=== PATIENT | female | born 1955 | race Caucasian/White ===

== ENCOUNTER 2019-07-09 07:52 | Emergency (ER) | payer MEDICAID ==
[~2019-07-09] VITALS: Ht 165.1 cm; Wt 90.7 kg
[2019-07-09 08:06] VITALS: BP_SYST 143
--- NOTE | 2019-07-09 08:12 | NUR ---
ambulated to bed 5
--- NOTE | 2019-07-09 08:14 | NUR ---
Patient arrived in the ED c/o abscess on lower nostril that started 3 days ago - Patient is taking Tylenol; no relief per patient. Denied any fevers or chills. Patient is alert and oriented x4, respirations even and unlabored, speaking in full sentences, ambulating with a steady gait. VSS, pain level 8/10. Denied any chest pain or SOB. Informed of wait time. Instructed to notify ED staff for any changes in condition or worsening of symptoms. Patient verbalized understanding.
--- NOTE | 2019-07-09 08:16 | NUR ---
ER Dr. Carrington at bedside examining patient.
[2019-07-09] MEDS ORDERED: MORPHINE 4 MG/ML INJ. SYRINGE IM ONE (08:30)
--- NOTE | 2019-07-09 08:30 | NUR ---
Administered Morphine Sulfate 4mg IM as ordered by Dr. Carrington. Patient tolerated the medication well.
--- NOTE | 2019-07-09 08:35 | NUR ---
Sister at bedside.
--- NOTE | 2019-07-09 08:37 | NUR ---
Patient given written and verbal discharge instructions and verbalizes understanding. ER MD discussed with patient the results and treatment provided. Patient in stable condition. ID arm band removed. Rx of Lovely and Bactrim given. Patient educated on pain management and to follow up with PMD. Pain Scale 0/10. Opportunity for questions provided and answered. Medication side effect fact sheet provided.
[2019-07-09 08:41] VITALS: BP_SYST 143
== END 2019-07-09 08:41 | disposition home or self-care (01) ==
LOC: SED 07:52
DX: L02.02 Furuncle of face (principal); J44.9 Chronic obstructive pulmonary disease, unspecified; E11.9 Type 2 diabetes mellitus without complications; I10 Essential (primary) hypertension; Z88.0 Allergy status to penicillin; Z88.6 Allergy status to analgesic agent; Z90.49 Acquired absence of other specified parts of digestive tract
CPT/HCPCS: 96372; 99283; J2270; J7030

== ENCOUNTER 2019-07-17 13:09 | Emergency (ER) | payer MEDICAID ==
[~2019-07-17] VITALS: Ht 165.1 cm; Wt 90.7 kg
[2019-07-17 13:10] VITALS: BP_SYST 119
--- NOTE | 2019-07-17 13:10 | NUR ---
Patient triaged and placed in waiting room. VSS and patient appears in no acute distress at this time. Accompanied by SELF, awaiting available bed, and MD notified of need for MSE.
--- NOTE | 2019-07-17 14:10 | NUR ---
Veronica harrison in [facility] - 07/17/19 at 1606 by [email or web address] Patient to ER bed 5 to gown for evaluation. Side rails up.
--- NOTE | 2019-07-17 14:30 | NUR ---
PT BEING EVALUATED BY FLORENCIO YU IN TRIAGE ROOM.
[2019-07-17] MEDS ORDERED: LIDOCAINE 2%, 20 ML MDV INJ ONE (14:45)
[2019-07-17] MEDS ORDERED: HYDROcodone/ACETAMIN 5-325 MG TAB (NORCO/ VICODIN) PO ONE (14:45)
[2019-07-17] MEDS ORDERED: MUPIROCIN 2% TOPICAL OINTMENT 22 GM TP ONE (15:30)
--- NOTE | 2019-07-17 15:45 | NUR ---
Patient to ER bed 5 to gown for evaluation. Side rails up.
[2019-07-17] MEDS ORDERED: BACITRACIN 1 GM OINT TP ONE (15:50)
--- NOTE | 2019-07-17 15:50 | NUR ---
Patient presented to ER C/O painful facial bump. Patient A&Ox4, afebrile, ambulatory to ER, facial skin bump: red, swollen, no bleeding noted, pain 10/10, denies diarrhea, emesis/nausea x1 today. Patient states bump has been present since 07/08/2019 and pt staes she was treated with antibiotics.
--- NOTE | 2019-07-17 16:00 | NUR ---
ER [employer] B[employer] TEACHER at bedside examining patient.
--- NOTE | 2019-07-17 16:09 | NUR ---
I&D Procedure done by Diony Yi AUT[employer] DAMAGE APPRAISER to using sterile technique. Lidocaine 1% used. scant amt of bleeding noted. Wound care discussed w/ patient. Pt tolerated procedure well.
[2019-07-17 16:37] VITALS: BP_SYST 121
--- NOTE | 2019-07-17 16:40 | NUR ---
Patient given written and verbal discharge instructions and verbalizes understanding. ER MD discussed with patient the results and treatment provided. Patient in stable condition. ID arm band removed. Rx of Doxycycline & Mupercin given. Patient educated on pain management and to follow up with PMD. Pain Scale 3/10 tolerable for patient. Opportunity for questions provided and answered. Medication side effect fact sheet provided.
== END 2019-07-17 16:40 | disposition home or self-care (01) ==
LOC: SED 13:09
DX: L02.01 Cutaneous abscess of face (principal)
CPT/HCPCS: 10060; 99283; J2001

== ENCOUNTER 2020-01-05 19:48 | Emergency (ER) | payer MEDICAID ==
[~2020-01-05] VITALS: Ht 165.1 cm; Wt 100.7 kg
[2020-01-05 20:00] VITALS: BP_SYST 113
--- NOTE | 2020-01-05 20:00 | NUR ---
Patient to ER bed 3 to gown for evaluation. Side rails up. Report given to JONATHAN GEE.
--- NOTE | 2020-01-05 20:01 | NUR ---
RECEIVED AND IN ROOM, STEADY GAIT
--- NOTE | 2020-01-05 20:12 | NUR ---
DR WHITT IN TO ASSESS
[2020-01-05] MEDS ORDERED: MORPHINE 2 MG/ML INJ. SYRINGE IM ONE (20:15)
--- NOTE | 2020-01-05 20:16 | NUR ---
X-RAY IN PROGRESS.
--- NOTE | 2020-01-05 20:19 | NUR ---
ALERT, CALM, RESP UNLABORED, SKIN WARM AND DRY. ABLE TO BEAR WEIGHT, DENIES LOC/HEAD INJURY. COMMUNICATES CLEARLY IN FULL COMPLETE SENTENCES.
--- NOTE | 2020-01-05 21:20 | NUR ---
Patient given written and verbal discharge instructions and verbalizes understanding. ER MD discussed with patient the results and treatment provided. Patient in stable condition. ID arm band removed. Rx given. Patient educated on pain management and to follow up with PMD. Pain Scale 2/10 Opportunity for questions provided and answered. Medication side effect fact sheet provided.
[2020-01-05 21:23] VITALS: BP_SYST 109
== END 2020-01-05 21:20 | disposition home or self-care (01) ==
LOC: SED 19:48
DX: S93.492A Sprain of other ligament of left ankle, initial encounter (principal); S83.92XA Sprain of unspecified site of left knee, initial encounter; J44.9 Chronic obstructive pulmonary disease, unspecified; I10 Essential (primary) hypertension; E11.9 Type 2 diabetes mellitus without complications; Z87.891 Personal history of nicotine dependence; Z90.49 Acquired absence of other specified parts of digestive tract; Z88.0 Allergy status to penicillin; Z88.6 Allergy status to analgesic agent; W01.0XXA Fall on same level from slipping, tripping and stumbling without subsequent striking against object, initial encounter; Y93.01 Activity, walking, marching and hiking; Y92.89 Other specified places as the place of occurrence of the external cause; Y99.8 Other external cause status
CPT/HCPCS: 73564; 73610; 96372; 99284; J2270

== ENCOUNTER 2020-06-26 11:00 | Emergency (ER) | payer MEDICAID, SELFPAY ==
[2020-06-26] MEDS ORDERED: ALBUTEROL SULFATE 0.083% 2.5 MG/3 ML VIAL.NEB INH ONE (12:59)
--- NOTE | 2020-06-26 16:07 | NUR ---
SEE DOWNTIME PAPERWORK
[2020-06-27 14:30] LABS: CALCIUM 9.1 mg/dL (8.4-11.0); POTASSIUM 4.4 mmol/L (3.5-5.1)
[2020-06-27 14:31] LABS: BILIRUBIN,DIRECT 0.1 mg/dL (0.0-0.3); CREATININE 1.43 mg/dL (0.55-1.30); TOTAL BILIRUBIN 0.8 mg/dL (0.0-1.0)
[2020-06-27 14:32] LABS: ALBUMIN 3.9 g/dL (3.4-4.8)
[2020-06-27 14:38] LABS: HEMATOCRIT 41.7 % (36-48); HEMOGLOBIN 14.3 g/dL (12.0-16.0); MEAN CORPUSCULAR HEMOGLOBIN 31 pg (27-31); MEAN CORPUSCULAR HGB CONC 34 % (32-36); MEAN CORPUSCULAR VOLUME 91 fL (79.0-98.0); PLATELET COUNT (AUTO) 251 K/uL (130-430); RED BLOOD CELL COUNT(AUTO) 4.59 MIL/uL (4.2-6.2); RED CELL DISTRIBUTION WIDTH 12.5 % (9.0-15.0); WHITE BLOOD COUNT (AUTO) 7.4 K/uL (4.8-10.8)
[2020-06-27 14:39] LABS: BASOPHILS # (AUTO) 0.1 K/uL (0.0-0.2); BASOPHILS % (AUTO) 0.7 % (0.0-2.0); EOSINOPHILS # (AUTO) 0.1 K/uL (0.0-0.4); EOSINOPHILS % (AUTO) 0.9 % (0.0-4.0); LYMPHOCYTES # (AUTO) 2.1 K/uL (1.0-5.5); LYMPHOCYTES % (AUTO) 28.5 % (20.5-51.5); MONOCYTES # (AUTO) 0.6 K/uL (0.0-1.0); MONOCYTES % (AUTO) 7.9 % (1.7-9.3); NEUTROPHILS # (AUTO) 4.6 K/uL (1.8-7.7)
== END 2020-06-26 14:14 | disposition home or self-care (01) ==
LOC: SED 11:00
DX: J20.9 Acute bronchitis, unspecified (principal)
CPT/HCPCS: 36415; 36600; 71045; 80053; 82140; 82248; 82803; 83880; 84484; 85025; 85379; 85610; 87040; 87070; 87086; 87205; 93005; 94640; 99285; J7613; 99284

== ENCOUNTER 2021-03-16 08:00 | Inpatient (IN) | payer MEDICAID, SELFPAY ==
[~2021-03-16] VITALS: Ht 165.1 cm; Wt 90.7 kg
[2021-03-16 08:26] VITALS: BP_SYST 111
[2021-03-16] MEDS ORDERED: DEXAMETHASONE SOD PHOSPHATE 10 MG/ML VIAL IVP ONE (09:00)
[2021-03-16] MEDS ORDERED: ALBUTEROL MDI INHALATION 8 GM INH INH ONE (09:00)
[2021-03-16] MEDS ORDERED: ACETAMINOPHEN 500 MG TABLET ONE (09:02)
--- NOTE | 2021-03-16 09:19 | NUR ---
RECEIEVED PT, AAOX3, REPORTS FEELING SOB AND FEVERS FOR LAST COUPLE OF DAYS. PT FEBRILE AT 104.3, REPORTS MILD SOB AND FEELING GENERALIZED PAIN TO BODY AND HEADCAHE 10/10 AT THIS TIME. ABD LARGE, SOFT, NT TO PALPATION, DENIES ANY N/V/D. STATES SHE LIVES AT HOME WITH HER AND SON. PT ALSO ADMITTED TO NOT GETTING VACCINATED. WAITING FOR ER MD QURESHI.
--- NOTE | 2021-03-16 09:27 | NUR ---
MEDICATED WITH TYLENOL ORDERED.
[2021-03-16 09:32] LABS: BASOPHILS # (AUTO) 0.1 K/uL (0.0-0.2); BASOPHILS % (AUTO) 0.4 % (0.0-2.0); EOSINOPHILS % (AUTO) 0.1 % (0.0-4.0); HEMATOCRIT 32.7 % (36-48); HEMOGLOBIN 11.1 g/dL (12.0-16.0); LYMPHOCYTES # (AUTO) 1.2 K/uL (1.0-5.5); LYMPHOCYTES % (AUTO) 7.6 % (20.5-51.5); MEAN CORPUSCULAR HEMOGLOBIN 31 pg (27-31); MEAN CORPUSCULAR HGB CONC 34 % (32-36); MEAN CORPUSCULAR VOLUME 92 fL (79.0-98.0); MONOCYTES % (AUTO) 12.9 % (1.7-9.3); NEUTROPHILS # (AUTO) 12.2 K/uL (1.8-7.7); PLATELET COUNT (AUTO) 220 K/uL (130-430); RED BLOOD CELL COUNT(AUTO) 3.55 MIL/uL (4.2-6.2); RED CELL DISTRIBUTION WIDTH 12.9 % (9.0-15.0); WHITE BLOOD COUNT (AUTO) 15.4 K/uL (4.8-10.8)
[2021-03-16] MEDS ORDERED: ACETAMINOPHEN 500 MG TABLET PO ONE (09:45)
--- NOTE | 2021-03-16 09:47 | NUR ---
SL INSERTED TO RT FA, GOOD BLOOD RETURN,FLUSHED WITH 5CC NS. RAPID COVID TEST DONE.
[2021-03-16 09:52] LABS: CALCIUM 7.8 mg/dL (8.4-11.0); CREATININE 1.55 mg/dL (0.55-1.30); POTASSIUM 3.5 mmol/L (3.5-5.1)
[2021-03-16 09:53] LABS: PROTHROMBIN TIME 10.2 SECS (9.5-12.5)
[2021-03-16 09:56] LABS: ALBUMIN 2.8 g/dL (3.4-4.8); TOTAL BILIRUBIN 0.8 mg/dL (0.0-1.0)
[2021-03-16 10:12] LABS: C-REACTIVE PROTEIN QUANT 33.2 mg/dL (0-0.5)
--- NOTE | 2021-03-16 11:51 | NUR ---
PT DIAPHORETIC, PALE, TEMP 98.9 ORAL, REPORTS FEELING BETTER. IV LEVAQUIN INFUSING WELL TO LEFT HAND IV. BP 120/71, HR-95, 94% ON 02-2L VIA NC.
--- NOTE | 2021-03-16 12:13 | NUR ---
CONSENT RECEIVED FOR CT CHEST, QUESTIONNAIRE COMPLETED. Addendum: 03/16/21 at 1238 by [email or web address] NOTE WRITTEN BY LAURA CASTILLO
[2021-03-16] MEDS ORDERED: IOHEXOL 350 mgI/mL, 150 ML INFUS..BTL IV ONE (12:34)
--- NOTE | 2021-03-16 12:38 | NUR ---
CT SCAN STAFF INFORMED PT IS READY FOR CT SCAN WITH CONTRAST
--- NOTE | 2021-03-16 13:07 | NUR ---
PT BACK FROM CT SCAN, NEW GOWN GIVEN. VSS.
--- NOTE | 2021-03-16 13:40 | NUR ---
PT TRANSFERED TO TELE 116A WITH EMT, BEDSIDE REPORT LAURIE, PT WALKED TO ROOM WITH MINIMAL ASSISTANCE. VSS. ALL BELONGINGS WITH PT.
[2021-03-16 13:45] VITALS: BP_SYST 98
--- NOTE | 2021-03-16 13:45 | NUR ---
ADMISSION NOTE Received patient from ER ambulatory, received report from JONATHAN Dyson. Patient admitted as a Person Under Investigation for COVID-19. Explained need for isolation, verbalized understanding. Patient oriented to hospital routine, call light, toileting and safety-patient, verbalized understanding.
[2021-03-16] MEDS ORDERED: FUROSEMIDE 40 MG/4 ML VIAL IVP SCH (16:30)
--- NOTE | 2021-03-16 17:03 | NUR ---
ROUNDS RESTING. NO SIGN OF DISTRESS. HER SON CAME IN AND PICKED UP HER WALLET, MEDICATIONS AND BLACK SHIRT. NO OTHER COMPLAINS AT THIS TIME. WILL MONITOR.
--- NOTE | 2021-03-16 17:12 | NUR ---
CONSULT PULMONOLOGY PNEUMONIA- DR EDGE [phone] S/W ANTHONY DIAZ
--- NOTE | 2021-03-16 17:14 | NUR ---
CONSULT ID PNEUMONIA DR [facility] [phone] S/W MERYNA EXCHANGE
--- NOTE | 2021-03-16 18:51 | NUR ---
CLOSING NOTES RESTING. NO SIGN OF DISTRESS. STILL ON OXYGEN AT 2 LITERS. ALL NEEDS MET. SAFETY CHECKS DONE. WILL ENDORSE TO NIGHT NURSE.
--- NOTE | 2021-03-16 19:30 | NUR ---
OPENING NOTE RECEIVED REPORT FROM DAY RN. PT LAYING IN BED WITH RESPIRATIONS EVEN AND UNLABORED ON 3L O2 VIA NC. PT VISIBLY UPSET AND STATES, "WHY DO I HAVE TO BE IN THIS ROOM". EDUCATED PT ON RESPIRATORY SYMPTOMS AND TESTS DONE TO RULE OUT COVID INFECTION. PT VERBALIZED UNDERSTANDING. PT STATES SHE FEELS "ALONE" BECAUSE NO ONE HAD ANSWERED HER CALL LIGHT. PT EDUCATED ON PROPER BUTTON TO USE WHEN NEEDING ASSISTANCE. PT VERBALIZED UNDERSTANDING. LINES AND GOWN CHANGED. PT IV PULLED OUT. PT IS UNAWARE OF HOW IT BECAME DISLODGED. IV TIP INTACT. NO BLEEDING AT INSERTION SITE. PT STATES SHE FORGOT TO TELL PREVIOUS NURSE ABOUT HER HOME MEDICATIONS TAKEN. PT CANNOT REMEMBER MEDICATIONS AT THIS TIME. WILL CALL SISTER TO VERIFY MEDICATIONS. BED IN LOWEST AND LOCKED POSITION. PT AMBULATORY WITH STEADY GAIT. CALL LIGHT WITHIN REACH. SAFETY PRECAUTIONS IN PLACE. WILL CONTINUE TO MONITOR.
[2021-03-16 20:00] VITALS: BP_SYST 97
--- NOTE | 2021-03-16 22:25 | NUR ---
CALLED PATIENT SISTER (ANTONIO) PER PT, ANTONIO PHONE NUMBER: [phone] CALLED ANTONIO TO VERIFY PT HOME MEDICATIONS. PER PT, SHE TAKES A "WATER PILL", A BLOOD PRESSURE PILL (MAYBE HYDRALAZINE), THYROID MEDICATION (LEVOTHYROXINE), AND A PSYCHIATRIC MEDICATION THAT MAY BEGIN WITH THE LETTERS "LAMO...." SISTER DID NOT KNOW WHAT MEDICATIONS PT IS CURRENTLY TAKING AND ASKS TO CALL IN THE AM WHEN PT SON IS HOME. WILL ENDORSE TO DAY RN.
[2021-03-17 00:37] VITALS: BP_SYST 103
[2021-03-17] MEDS: LEVOFLOXACIN IN DEXTROSE 5 % 100 ML IV SCH ×2 (02:30→04:38)
[2021-03-17] MEDS: 0.45% NACL 1,000 ML IV SCH ×3 (02:30→11:39)
--- NOTE | 2021-03-17 02:45 | NUR ---
ROUNDS PT C/O HEADACHE AND FEELING ANXIOUS. WILL PAGE PRIMARY MD FOR MEDICATION ORDERS.
--- NOTE | 2021-03-17 02:50 | NUR ---
PAGED DR. HUMPHRIES SPOKE WITH EXCHANGE REGARDING PT NEEDING MEDICATION ORDERS. CALL BACK NUMBER GIVEN.
--- NOTE | 2021-03-17 03:45 | NUR ---
ATTEMPTED IV INSERTION UNABLE TO GET PATENT IV VIA LEFT ARM. WILL ASK ANOTHER EXPERIENCED LICENSED PERSONAL TO ASSIST WITH INSERTION
--- NOTE | 2021-03-17 04:09 | NUR ---
ATTEMPTED IV INSERTION SECOND LICENSED PERSONAL ATTEMPTED IV INSERTION. UNABLE TO GET PATENT IV. PT EDUCATED ON UNSUCCESSFUL ATTEMPTS. AWAITING MD TO RETURN CALL FOR MEDICATION ORDERS.
[2021-03-17] MEDS ORDERED: LEVOFLOXACIN IN DEXTROSE 5 % 100 ML IV ONE (04:19)
[2021-03-17 06:50] LABS: BASOPHILS % (AUTO) 0.2 % (0.0-2.0); HEMATOCRIT 36.3 % (36-48); HEMOGLOBIN 12.2 g/dL (12.0-16.0); LYMPHOCYTES # (AUTO) 0.9 K/uL (1.0-5.5); LYMPHOCYTES % (AUTO) 6.3 % (20.5-51.5); MEAN CORPUSCULAR HEMOGLOBIN 31 pg (27-31); MEAN CORPUSCULAR HGB CONC 34 % (32-36); MEAN CORPUSCULAR VOLUME 92 fL (79.0-98.0); MONOCYTES # (AUTO) 1.1 K/uL (0.0-1.0); MONOCYTES % (AUTO) 7.6 % (1.7-9.3); NEUTROPHILS # (AUTO) 12.6 K/uL (1.8-7.7); NEUTROPHILS % (AUTO) 85.9 % (40.0-70.0); PLATELET COUNT (AUTO) 275 K/uL (130-430); RED BLOOD CELL COUNT(AUTO) 3.96 MIL/uL (4.2-6.2); WHITE BLOOD COUNT (AUTO) 14.7 K/uL (4.8-10.8)
[2021-03-17 07:23] LABS: CALCIUM 8.8 mg/dL (8.4-11.0); CREATININE 1.68 mg/dL (0.55-1.30); POTASSIUM 3.7 mmol/L (3.5-5.1)
[2021-03-17 07:28] LABS: ALBUMIN 2.9 g/dL (3.4-4.8); TOTAL BILIRUBIN 0.5 mg/dL (0.0-1.0)
--- NOTE | 2021-03-17 07:34 | NUR ---
called son to try and get a list of the medications the patient takes at home but did not answer, left message to call back.
[2021-03-17 08:00] VITALS: BP_SYST 104
--- NOTE | 2021-03-17 08:00 | NUR ---
PATIENT IN BED, NO S/S OF DISTRESS, REPORT FORM UNEMPLOYMENT BENEFITS CLAIMS TAKER THAT PATIENT IV WAS DISLODGED AND WITH HELP OF OTHER NURSE WAS NOT ABLE TO PLACE AN IV, IN ADDITION WAS TOLD PATIENT MED RECON WAS NOT COMPLETE BECAUSE PATIENT DOES NOT KNOW ALL THE MEDICATIONS SHE IS ON, WILL CONTACT SON TO GET MEDICATION LIST, A/OX4, ON 3L NASAL CANULA WITH O2 SAT OF 98%, NO PAIN OR COMPLAINTS AT THIS TIME, BED IN LOWEST LOCKED POSITION, CALL LIGHT WITHIN REACH, ISOLATION FOR COVID RULE OUT, WILL CONTINUE TO MONITOR.
[2021-03-17 08:57] LABS: C-REACTIVE PROTEIN QUANT 32.9 mg/dL (0-0.5)
--- NOTE | 2021-03-17 08:57 | NUR ---
Nutrition Update Gibran Scale 16 noted. Pt admitted for PUI, Pneumonia Diet: Regular BMI: 36.6 kg/m2 RD to follow per nutrition care standards.
[2021-03-17] MEDS ORDERED: IPRATROPIUM/ALBUTEROL SULFATE 3 ML AMPUL.NEB (DUONEB) INH PRN (09:00)
--- NOTE | 2021-03-17 09:13 | NUR ---
PLACED 22G IV IN RIGHT HAND, IV FLUIDS RUNNING AT 100ML/HR, SPOKE TO SON ON THE PHONE, SAID HE WOULD BRING IN HER MEDICATIONS FROM HOME AROUND 1300.
[2021-03-17] MEDS ORDERED: D5W 1,000 ML IV PRN (11:00)
[2021-03-17] MEDS ORDERED: GLUCOSE (DEXTROSE) ORAL GEL -Adults PO PRN (11:00)
[2021-03-17] MEDS ORDERED: DEXTROSE 50% JECT 50 ML DISP.SYRIN IVP PRN (11:00)
[2021-03-17] MEDS: IPRATROPIUM/ALBUTEROL SULFATE 3 ML AMPUL.NEB (DUONEB) INH SCH ×4 (11:13→23:41)
[2021-03-17] MEDS: methylPREDNISolone SOD SUCC 40 MG/ML VIAL IVP SCH (11:19)
[2021-03-17] MEDS: INSULIN REGULAR, HUMAN 100 UNITS/ML, 10 ML VIAL (humuLIN R) SUBCUT PRN ×3 (11:36→21:12)
[2021-03-17 12:00] VITALS: BP_SYST 101
--- NOTE | 2021-03-17 12:25 | NUR ---
patient family member brought medications from home, will input all into the med recon now and take them to pharmacy.
[2021-03-17] MEDS ORDERED: LISI20TA30 PO (12:27)
[2021-03-17] MEDS ORDERED: TRAZ300T11 PO (12:36)
[2021-03-17] MEDS ORDERED: QUET300T2 PO (12:36)
[2021-03-17] MEDS ORDERED: NEU300 PO (12:36)
[2021-03-17] MEDS ORDERED: LAMO200T2 PO (12:36)
[2021-03-17] MEDS ORDERED: CALC-823 PO (12:36)
[2021-03-17] MEDS ORDERED: LEVO75TA7 PO (12:36)
[2021-03-17] MEDS ORDERED: HCT25 PO (12:36)
--- NOTE | 2021-03-17 13:00 | NUR ---
CALL DR HUMPHRIES TO SEE IF HE WANTS TO MAKE HOME MEDS CURRENT IN PATIENT MEDS. AWAITING CALL BACK
[2021-03-17 16:00] VITALS: BP_SYST 121
--- NOTE | 2021-03-17 16:03 | NUR ---
CALLED DR HUMPHRIES AGAIN TO TRY AND SEE IF WANTS TO MAKE HOME MEDS CURRENT INPATIENT MEDS, IN ADDITION PATIENT STATES SHE HAS A HEADACHE AND WANTS TYLENOL, BUT NEED TO FOR ORDER FROM DR HUMPHRIES
--- NOTE | 2021-03-17 16:15 | NUR ---
PAGED PAGED CESIA FARLEY AT [phone] SPOKE WITH DAR.
--- NOTE | 2021-03-17 17:12 | NUR ---
PATIENT PCR RESULTED NEGATIVE, MD HUMPHRIES MADE AWARE, ORDERED TO DISCOTINUE ISOLATION. PATIENT MOVED FROM 115A TO ROOM 117A, MOVED IN BED, ALL BELONGINGS WITH PATIENT, ON 3L OXYGEN NASAL CANULA, TOLERATED WELL, NO COMPLAINTS AT THIS TIME.
[2021-03-17] MEDS ORDERED: ACET325T PO (18:39)
[2021-03-17] MEDS ORDERED: ACETAMINOPHEN 325 MG TABLET PO PRN (18:45)
--- NOTE | 2021-03-17 19:35 | NUR ---
ROUNDS PATIENT RESTING COMFORTABLY IN BED, VITALS STABLE, DENIES PAIN AT THIS TIME. ASSESSMENT DONE AND DOCUMENTED. SEE FLOWSHEET. NEEDS ATTENDED TO. SAFETY MEASURES IN PLACED. CALL LIGHT PLACED WITHIN REACH.
[2021-03-17 20:00] VITALS: BP_SYST 115
[2021-03-17] MEDS: QUEtiapine FUMARATE 100 MG TABLET PO SCH ×2 (21:00→21:13)
[2021-03-17] MEDS: traZODone HCL 50 MG TABLET (DESYREL) PO SCH (21:13)
--- NOTE | 2021-03-17 21:20 | NUR ---
DR. ROTH PAGED AND CALLED DR. ROTH, PATIENT'S BLOOD SUGAR 418, 12 UNITS REGULAR INSULIN GIVEN. NO NEW ORDER GIVEN. WILL CONTINUE TO MONITOR.
[2021-03-18] VITALS: BP_SYST 118
--- NOTE | 2021-03-18 00:12 | NUR ---
PATIENT RESTING: Patient resting quietly. No acute distress noted. Vital signs within normal range.
[2021-03-18] MEDS: LEVOFLOXACIN IN DEXTROSE 5 % 100 ML IV SCH (01:53)
[2021-03-18] MEDS: IPRATROPIUM/ALBUTEROL SULFATE 3 ML AMPUL.NEB (DUONEB) INH SCH ×6 (04:01→23:00)
[2021-03-18] MEDS: INSULIN REGULAR, HUMAN 100 UNITS/ML, 10 ML VIAL (humuLIN R) SUBCUT PRN ×4 (05:35→21:32)
[2021-03-18] MEDS: 0.45% NACL 1,000 ML IV SCH ×3 (05:40→18:47)
[2021-03-18] MEDS: LEVOTHYROXINE SODIUM 0.075 MG TABLET PO SCH (06:35)
[2021-03-18 08:00] VITALS: BP_SYST 109
--- NOTE | 2021-03-18 08:00 | NUR ---
patient in bed, no s/s of distress, iv intact patent, a/ox4, bed in lowest locked position, call light within reach, safety measures in place, no pain at this time, will continue to monitor.
[2021-03-18] MEDS: GABAPENTIN 300 MG CAPSULE PO SCH ×2 (08:38→08:50)
[2021-03-18] MEDS: CALCIUM CARBONATE/VITAMIN D3 1 TAB TABLET PO SCH (08:38)
[2021-03-18] MEDS: methylPREDNISolone SOD SUCC 40 MG/ML VIAL IVP SCH (08:38)
[2021-03-18] MEDS: LamoTRIgine 100 MG TABLET PO SCH (08:38)
[2021-03-18] MEDS: lisinopriL 20 MG TABLET PO SCH (08:44)
--- NOTE | 2021-03-18 09:50 | NUR ---
provided patient her medications, tolerated well, stated she wants to be left alone to sleep
[2021-03-18 12:42] VITALS: BP_SYST 123
--- NOTE | 2021-03-18 13:00 | NUR ---
patient stated she was experiencing labored breathing, noted cough, received order from dr rodríguez for robitussin, notified respiratory therapy, RT at bedside providing breathing treatment, will give robitussin after.
[2021-03-18] MEDS: guaiFENesin 200 MG/10 ML UDC PO PRN ×2 (13:10→18:46)
--- NOTE | 2021-03-18 14:18 | NUR ---
reviewed patient rhythm with personnel monitor, patient PVCs have not occurred consecutively and have only occurred when the patient coughs.
--- NOTE | 2021-03-18 15:04 | NUR ---
Dietitian Recommendations * [facility] w/ Glucerna BID (ONS provides 440 kcal/day, 20 gm protein/day) * Encourage increase PO intakes LP, RD Please refer to Nutrition Assessment for details. Addendum: 03/18/21 at [address] Amended: Links added.
[2021-03-18 17:39] VITALS: BP_SYST 131
--- NOTE | 2021-03-18 18:54 | NUR ---
patient in bed, no s/s of distress, iv in r hand 22g intact patent, on 3L nasal canula, O2 sat >95%, a/ox4, bed in lowest locked position, call light within reach, provided Robitussin for cough, safety measures in place, no pain at this time, will endorse to vendor relationship manager
[2021-03-18 19:41] VITALS: BP_SYST 117
[2021-03-18] MEDS: QUEtiapine FUMARATE 100 MG TABLET PO SCH (21:00)
[2021-03-18] MEDS: traZODone HCL 50 MG TABLET (DESYREL) PO SCH (21:30)
[2021-03-19] VITALS: BP_SYST 121
[2021-03-19] MEDS: guaiFENesin 200 MG/10 ML UDC PO PRN ×4 (00:07→20:33)
[2021-03-19] MEDS: LEVOFLOXACIN IN DEXTROSE 5 % 100 ML IV SCH (03:00)
[2021-03-19] MEDS: 0.45% NACL 1,000 ML IV SCH ×2 (04:30→14:30)
[2021-03-19] MEDS: IPRATROPIUM/ALBUTEROL SULFATE 3 ML AMPUL.NEB (DUONEB) INH SCH ×5 (04:59→19:57)
[2021-03-19] MEDS: INSULIN REGULAR, HUMAN 100 UNITS/ML, 10 ML VIAL (humuLIN R) SUBCUT PRN ×4 (05:26→20:36)
[2021-03-19] MEDS: LEVOTHYROXINE SODIUM 0.075 MG TABLET PO SCH (06:21)
[2021-03-19 08:00] VITALS: BP_SYST 117
--- NOTE | 2021-03-19 08:00 | NUR ---
Opening note Patient is resting in bed A&O x4 no complaint of pain or discomfort, no signs or symptoms of respiratory distress, IV is infusing no signs or symptoms of infiltration. Educated patient on plan of care, patient verbalized understanding. Bed is in lowest position, call light within reach, fall and aspiration precautions are in place. Will continue to monitor.
[2021-03-19 08:42] LABS: BASOPHILS % (AUTO) 0.1 % (0.0-2.0); EOSINOPHILS % (AUTO) 0.4 % (0.0-4.0); HEMATOCRIT 32.6 % (36-48); HEMOGLOBIN 10.8 g/dL (12.0-16.0); LYMPHOCYTES # (AUTO) 2.3 K/uL (1.0-5.5); LYMPHOCYTES % (AUTO) 23.3 % (20.5-51.5); MEAN CORPUSCULAR HEMOGLOBIN 31 pg (27-31); MEAN CORPUSCULAR HGB CONC 33 % (32-36); MEAN CORPUSCULAR VOLUME 93 fL (79.0-98.0); MONOCYTES # (AUTO) 1.3 K/uL (0.0-1.0); MONOCYTES % (AUTO) 12.9 % (1.7-9.3); NEUTROPHILS # (AUTO) 6.2 K/uL (1.8-7.7); NEUTROPHILS % (AUTO) 63.3 % (40.0-70.0); PLATELET COUNT (AUTO) 300 K/uL (130-430); RED CELL DISTRIBUTION WIDTH 13.5 % (9.0-15.0); WHITE BLOOD COUNT (AUTO) 9.8 K/uL (4.8-10.8)
[2021-03-19 08:44] LABS: ALBUMIN 2.6 g/dL (3.4-4.8); CALCIUM 8.4 mg/dL (8.4-11.0); CREATININE 1.56 mg/dL (0.55-1.30); POTASSIUM 4.3 mmol/L (3.5-5.1); TOTAL BILIRUBIN 0.2 mg/dL (0.0-1.0)
[2021-03-19] MEDS: CALCIUM CARBONATE/VITAMIN D3 1 TAB TABLET PO SCH (08:56)
[2021-03-19] MEDS: methylPREDNISolone SOD SUCC 40 MG/ML VIAL IVP SCH (08:56)
[2021-03-19] MEDS: GABAPENTIN 300 MG CAPSULE PO SCH (08:57)
[2021-03-19] MEDS: LamoTRIgine 100 MG TABLET PO SCH (08:57)
[2021-03-19] MEDS: lisinopriL 20 MG TABLET PO SCH (09:01)
--- NOTE | 2021-03-19 11:30 | NUR ---
RN note Patient is resting, no compliant of pain or discomfort, able to ambulate to the restroom without assist, steady gait. Will continue to monitor.
--- NOTE | 2021-03-19 14:30 | NUR ---
IV RE-INSERTION: Complaining of pain to IV site. Restarted on Right forearm 22G. Successful after 2 attempts. Resumed current IVF of 0.45 Nacl and regulated @ 70 per hour. Will observe for any signs of infiltration.
[2021-03-19 16:00] VITALS: BP_SYST 120
--- NOTE | 2021-03-19 18:41 | NUR ---
Closing note Patient is resting in bed A&O x4 no complaint of pain or discomfort, no signs or symptoms of respiratory distress, IV is infusing no signs or symptoms of infiltration. All needs were met. Bed is in lowest position, call light within reach, fall and aspiration precautions are in place. Will endorse report to film processing shift supervisor.
--- NOTE | 2021-03-19 19:15 | NUR ---
OPENING NOTES: Received patient report from morning shift nurse. Patient in bed, AAOX4, breathing evenly and nonlabored on 2L of O2 via nc, HOB elevated, no s/s of distress. Patient has an IV on the right hand 22G, patent, benign, and flushing. Educated patient on plan of care and call light use. Patient verbalized understanding with return demonstration. Fall/safety precaution. Will continue to monitor. Addendum: 03/19/21 at 2219 by Rhona Trejo RN right forearm
--- NOTE | 2021-03-19 19:46 | NUR ---
Paged Dr. Plaza [phone] s/w Linda
[2021-03-19 20:00] VITALS: BP_SYST 122
[2021-03-19] MEDS: traZODone HCL 50 MG TABLET (DESYREL) PO SCH (20:33)
[2021-03-19] MEDS: QUEtiapine FUMARATE 100 MG TABLET PO SCH (20:34)
[2021-03-20] VITALS (7 sets, daily range): BP systolic 98–125
--- NOTE | 2021-03-20 | NUR ---
ROUNDS: Patient in bed, eyes closed, breathing evenly and nonlabored on 2L of O2 via nc, no s/s of distress. Will continue to monitor.
[2021-03-20] MEDS: 0.45% NACL 1,000 ML IV SCH ×3 (00:51→23:20)
[2021-03-20] MEDS: guaiFENesin 200 MG/10 ML UDC PO PRN ×4 (00:51→23:19)
[2021-03-20] MEDS: LEVOFLOXACIN IN DEXTROSE 5 % 100 ML IV SCH (02:21)
[2021-03-20] MEDS: IPRATROPIUM/ALBUTEROL SULFATE 3 ML AMPUL.NEB (DUONEB) INH SCH ×5 (04:34→19:30)
[2021-03-20] MEDS: LEVOTHYROXINE SODIUM 0.075 MG TABLET PO SCH (06:02)
--- NOTE | 2021-03-20 06:11 | NUR ---
CLOSING NOTES: Patient in bed, eyes closed, breathing evenly and nonlabored on 2L of O2 via nc, HOB elevated, no s/s of distress. Patient has an IV on the right forearm 22G, patent, benign, and flushing. Fall/safety precaution. All needs met at this time. Will continue to monitor and endorse care to morning shift nurse.
[2021-03-20] MEDS: lisinopriL 20 MG TABLET PO SCH (08:14)
[2021-03-20] MEDS: GABAPENTIN 300 MG CAPSULE PO SCH (08:14)
[2021-03-20] MEDS: LamoTRIgine 100 MG TABLET PO SCH (08:14)
[2021-03-20] MEDS: methylPREDNISolone SOD SUCC 40 MG/ML VIAL IVP SCH (08:14)
[2021-03-20] MEDS: CALCIUM CARBONATE/VITAMIN D3 1 TAB TABLET PO SCH (08:14)
[2021-03-20] MEDS: POLYETHYLENE GLYCOL 3350, 17 GM/ POWD.PACK PO SCH (08:15)
--- NOTE | 2021-03-20 09:00 | NUR ---
OPENING NOTE RECEIVED REPORT FROM JONATHAN TRAN. PATIENT IS SITTING IN BED EATING BREAKFAST. PATIENT HAS NO COMPLAINTS OF PAIN OR DISCOMFORT AT THIS TIME. SAFETY, ASPIRATION, RESPIRATORY AND FALL PRECAUTIONS IN PLACE. WILL CONTINUE TO MONITOR.
[2021-03-20] MEDS: INSULIN REGULAR, HUMAN 100 UNITS/ML, 10 ML VIAL (humuLIN R) SUBCUT PRN ×3 (12:05→23:24)
--- NOTE | 2021-03-20 13:00 | NUR ---
NURSING NOTE PATIENT FOUND SITTING IN BED WITH NO COMPLAINTS OF PAIN OR DISCOMFORT. VS OBTAINED AND FLUIDS CHANGED AND COUGH MEDICATION GIVEN. PATIENT ALSO WAS RECEIVING A BREATHING TREATMENT FROM RESPIRATORY.PATIENT KIAH VO WAS CONTACTED AND UPDATED OF PATIENTS STATUS.WILL CONTINUE TO MONITOR.
--- NOTE | 2021-03-20 18:02 | NUR ---
Closing note Patient found sitting in bed and expresses no complaints of pain or discomfort at this time. Meal jasmeet was delivered, safety, aspiration, respiratory and fall precautions are in place. IV paten and intact. All needs met throughout shift. will endorse to head animal keeper.
--- NOTE | 2021-03-20 19:32 | NUR ---
dr. lieberman call back- ask for medication for constipation. md order milk of magnesia 30ml po daily prn for constipation.
[2021-03-20] MEDS ORDERED: MILK OF MAGNESIA 30 ML UDC PO PRN (19:45)
[2021-03-20] MEDS: QUEtiapine FUMARATE 100 MG TABLET PO SCH (21:00)
[2021-03-20] MEDS: traZODone HCL 50 MG TABLET (DESYREL) PO SCH (23:19)
[2021-03-21] MEDS: LEVOFLOXACIN IN DEXTROSE 5 % 100 ML IV SCH (02:10)
[2021-03-21] MEDS: IPRATROPIUM/ALBUTEROL SULFATE 3 ML AMPUL.NEB (DUONEB) INH SCH ×7 (03:00→23:00)
[2021-03-21] MEDS ORDERED: VANCOMYCIN HCL 1,000 MG in NS 250 ML IV ONE (05:15)
[2021-03-21] MEDS ORDERED: VANCOMYCIN HCL 1000 MG/VIAL IV ONE (06:05)
[2021-03-21] MEDS: 0.45% NACL 1,000 ML IV SCH ×2 (06:19→18:55)
[2021-03-21] MEDS: LEVOTHYROXINE SODIUM 0.075 MG TABLET PO SCH (06:24)
[2021-03-21] MEDS: guaiFENesin 200 MG/10 ML UDC PO PRN ×3 (06:27→20:29)
[2021-03-21 07:52] VITALS: BP_SYST 110
--- NOTE | 2021-03-21 08:00 | NUR ---
Opening Note PATIENT IS SITTING IN BED EATING BREAKFAST. PATIENT HAS NO COMPLAINTS OF PAIN OR DISCOMFORT AT THIS TIME. SAFETY, ASPIRATION, RESPIRATORY AND FALL PRECAUTIONS IN PLACE. WILL CONTINUE TO MONITOR.
[2021-03-21] MEDS: GABAPENTIN 300 MG CAPSULE PO SCH (08:15)
[2021-03-21] MEDS: LamoTRIgine 100 MG TABLET PO SCH (08:15)
[2021-03-21] MEDS: POLYETHYLENE GLYCOL 3350, 17 GM/ POWD.PACK PO SCH (08:15)
[2021-03-21] MEDS: CALCIUM CARBONATE/VITAMIN D3 1 TAB TABLET PO SCH (08:16)
[2021-03-21] MEDS: lisinopriL 20 MG TABLET PO SCH (08:16)
[2021-03-21 08:19] LABS: BASOPHILS % (AUTO) 0.1 % (0.0-2.0); EOSINOPHILS # (AUTO) 0.4 K/uL (0.0-0.4); EOSINOPHILS % (AUTO) 2.5 % (0.0-4.0); HEMATOCRIT 32.2 % (36-48); HEMOGLOBIN 10.7 g/dL (12.0-16.0); LYMPHOCYTES # (AUTO) 3.6 K/uL (1.0-5.5); LYMPHOCYTES % (AUTO) 24.6 % (20.5-51.5); MEAN CORPUSCULAR HEMOGLOBIN 31 pg (27-31); MEAN CORPUSCULAR HGB CONC 33 % (32-36); MEAN CORPUSCULAR VOLUME 93 fL (79.0-98.0); MONOCYTES # (AUTO) 1.1 K/uL (0.0-1.0); MONOCYTES % (AUTO) 7.6 % (1.7-9.3); NEUTROPHILS # (AUTO) 9.6 K/uL (1.8-7.7); NEUTROPHILS % (AUTO) 65.2 % (40.0-70.0); PLATELET COUNT (AUTO) 345 K/uL (130-430); RED BLOOD CELL COUNT(AUTO) 3.47 MIL/uL (4.2-6.2); RED CELL DISTRIBUTION WIDTH 13.3 % (9.0-15.0); WHITE BLOOD COUNT (AUTO) 14.7 K/uL (4.8-10.8)
[2021-03-21 08:52] LABS: C-REACTIVE PROTEIN QUANT 2.5 mg/dL (0-0.5); CALCIUM 8.7 mg/dL (8.4-11.0); CREATININE 1.18 mg/dL (0.55-1.30); POTASSIUM 4.9 mmol/L (3.5-5.1)
[2021-03-21] MEDS: methylPREDNISolone SOD SUCC 40 MG/ML VIAL IVP SCH (09:58)
[2021-03-21] MEDS: INSULIN REGULAR, HUMAN 100 UNITS/ML, 10 ML VIAL (humuLIN R) SUBCUT PRN ×3 (11:16→20:33)
[2021-03-21 11:44] VITALS: BP_SYST 147
[2021-03-21 12:14] LABS: ERYTHROCYTE SEDIMENTATION RATE 39 MM/HR (0-20)
--- NOTE | 2021-03-21 12:51 | NUR ---
CONSULTATION PAGED/CALLED Reason for Consultation: [] POSS ENDOCARDITIS Person Who was Notified: [] KRYSTYNA Consulting Physician: [] DR LEE TERRITORY OUTSIDE SALES MANAGER FOR DR GALVEZ Account Advisor Specialty: [] CARDIO Ordering Physician: [] DR Avinash ELLISON
--- NOTE | 2021-03-21 14:30 | NUR ---
Nursing note Patient found in bed sleeping after eating lunch. PRN cough medicine given, lauro care provided and linens changed. Patient has no complaints of pain or discomfort at this time. will continue to monitor.
[2021-03-21 15:33] VITALS: BP_SYST 149
--- NOTE | 2021-03-21 18:08 | NUR ---
closing note Patient found sitting in bed and expresses no complaints of pain or discomfort at this time. Meal jasmeet was delivered, safety, aspiration, respiratory and fall precautions are in place. IV paten and intact. All needs met throughout shift. will endorse to shift mgr.
[2021-03-21 19:00] VITALS: BP_SYST 116
--- NOTE | 2021-03-21 19:15 | NUR ---
change of shift.pt.presents quiescent affect;calm,resting.pt.presents iv access location lt.antecubital iv fluids infusing. pt.capable to ambulate/reposition self.no c/o pain,nausea.call light/telephone w/in access of the pt.
[2021-03-21 20:00] VITALS: BP_SYST 116
--- NOTE | 2021-03-21 20:00 | NUR ---
pt.assessed.v/s assessed values wnl.no c/o pain,nausea.iv access intact iv fluids infusing.i apprised the pt.that snacks/beverages available w/in the shift.pt requested crackers;saltines provided.pt.capable to reposition self/ambulate.pt.ambulated to the restroom gait assessed wnl.call light/telephone placed w/in access of the pt.
[2021-03-21] MEDS: QUEtiapine FUMARATE 100 MG TABLET PO SCH ×2 (20:29→20:37)
[2021-03-21] MEDS: traZODone HCL 50 MG TABLET (DESYREL) PO SCH (20:29)
--- NOTE | 2021-03-21 20:30 | NUR ---
blood glucose assessed value;279mg/dl.pt.apprised of the blood glucose value.
--- NOTE | 2021-03-21 21:00 | NUR ---
2100pmedications administered.pt.capable to ingest the po medications w/out difficulty.pt.had requested robitussin po i have administered the robitussin.i have administered insulin:regular;6 units.no requests posited@this hour.call light/telephone w/in access of the pt.
--- NOTE | 2021-03-21 22:00 | NUR ---
pt.assessed.pt.presents quiescent affect;calm,resting.iv access intact iv fluids infusing.no c/o pain,nausea.no requests posited @this hour.pt.capable to reposition self.call light/telephone w/in access of the pt.
--- NOTE | 2021-03-22 | NUR ---
pt.assessed.v/s assessed values wnl.no c/o pain,nausea.no request posited@this hour.iv access intact iv fluids infusing. pt.capable to reposition self.call light/telephone w/in access of the pt.
[2021-03-22 00:40] VITALS: BP_SYST 113
--- NOTE | 2021-03-22 02:00 | NUR ---
pt.assessed.pt.presents quiescent affect;calm,somnolent.per flacc pain mgx pt.absent facial grimaces/body posturing. iv access intact iv fluids infusing.call light/telephone w/in access of the pt.
[2021-03-22] MEDS: 0.45% NACL 1,000 ML IV SCH (02:30)
--- NOTE | 2021-03-22 03:00 | NUR ---
pt.had requested robitussin and cup of tea.i have administered the robitussin and provided the tea.i have administered zosyn; 0230a dose.call light/telephone w/in access of the pt.
[2021-03-22] MEDS: LEVOFLOXACIN IN DEXTROSE 5 % 100 ML IV SCH (03:08)
[2021-03-22] MEDS: guaiFENesin 200 MG/10 ML UDC PO PRN ×4 (03:19→22:06)
--- NOTE | 2021-03-22 04:00 | NUR ---
pt.assessed.pt.presents quiescent affect;calm.somnolent.per flacc pain mgx pt. absent facial grimaces/body posturing.iv access intact iv fluids infusing.pt.capable to reposition self.call light/telephone w/in access of the pt.
[2021-03-22] MEDS: VANCOMYCIN HCL 1,250 MG in NS 250 ML IV SCH (05:19)
[2021-03-22] MEDS: LEVOTHYROXINE SODIUM 0.075 MG TABLET PO SCH (05:23)
--- NOTE | 2021-03-22 06:25 | NUR ---
pt.assessed.pt.presents quiescent affect calm,resting.i have administered vancomycin abx ivpb 0600a dose.blood glucose value;150mg/dl.no insulin administration required per sliding scale.pt.capable to reposition self.call light/telephone w/in access of the pt.
[2021-03-22 07:03] LABS: BASOPHILS % (AUTO) 0.2 % (0.0-2.0); EOSINOPHILS # (AUTO) 0.3 K/uL (0.0-0.4); EOSINOPHILS % (AUTO) 1.6 % (0.0-4.0); HEMATOCRIT 32.9 % (36-48); HEMOGLOBIN 10.9 g/dL (12.0-16.0); LYMPHOCYTES # (AUTO) 3.2 K/uL (1.0-5.5); LYMPHOCYTES % (AUTO) 18.9 % (20.5-51.5); MEAN CORPUSCULAR HEMOGLOBIN 31 pg (27-31); MEAN CORPUSCULAR HGB CONC 33 % (32-36); MEAN CORPUSCULAR VOLUME 93 fL (79.0-98.0); MONOCYTES # (AUTO) 1.2 K/uL (0.0-1.0); MONOCYTES % (AUTO) 7.1 % (1.7-9.3); NEUTROPHILS # (AUTO) 12.3 K/uL (1.8-7.7); NEUTROPHILS % (AUTO) 72.2 % (40.0-70.0); PLATELET COUNT (AUTO) 341 K/uL (130-430); RED BLOOD CELL COUNT(AUTO) 3.54 MIL/uL (4.2-6.2); RED CELL DISTRIBUTION WIDTH 13.3 % (9.0-15.0)
[2021-03-22 07:08] LABS: ALBUMIN 2.7 g/dL (3.4-4.8); CALCIUM 8.9 mg/dL (8.4-11.0); CREATININE 1.37 mg/dL (0.55-1.30); PHOSPHORUS 3.9 mg/dL (2.7-4.5); POTASSIUM 5.1 mmol/L (3.5-5.1); TOTAL BILIRUBIN 0.3 mg/dL (0.0-1.0)
[2021-03-22 08:30] VITALS: BP_SYST 106
[2021-03-22] MEDS: IPRATROPIUM/ALBUTEROL SULFATE 3 ML AMPUL.NEB (DUONEB) INH SCH ×5 (08:36→23:21)
[2021-03-22] MEDS: POLYETHYLENE GLYCOL 3350, 17 GM/ POWD.PACK PO SCH (09:09)
[2021-03-22] MEDS: LamoTRIgine 100 MG TABLET PO SCH (09:10)
[2021-03-22] MEDS: lisinopriL 20 MG TABLET PO SCH (09:10)
[2021-03-22] MEDS: GABAPENTIN 300 MG CAPSULE PO SCH (09:10)
[2021-03-22] MEDS: methylPREDNISolone SOD SUCC 40 MG/ML VIAL IVP SCH (09:10)
[2021-03-22] MEDS: CALCIUM CARBONATE/VITAMIN D3 1 TAB TABLET PO SCH (09:11)
[2021-03-22 10:02] LABS: C-REACTIVE PROTEIN QUANT 1.5 mg/dL (0-0.5)
[2021-03-22 10:30] LABS: ERYTHROCYTE SEDIMENTATION RATE 29 MM/HR (0-20)
[2021-03-22] MEDS: INSULIN REGULAR, HUMAN 100 UNITS/ML, 10 ML VIAL (humuLIN R) SUBCUT PRN ×3 (11:48→21:27)
[2021-03-22 11:50] VITALS: BP_SYST 105
[2021-03-22 12:07] VITALS: BP_SYST 101
[2021-03-22] MEDS ORDERED: CEFEPIME 2 GM in D5W 100 ML IV SCH (18:00)
--- NOTE | 2021-03-22 19:45 | NUR ---
INCONTINENCE INCONTINENCE CARE DONE. PATIENT HAD SMALL BOWEL MOVEMENT. PERINEAL CARE DONE.
[2021-03-22] MEDS: QUEtiapine FUMARATE 100 MG TABLET PO SCH (21:00)
[2021-03-22 21:16] VITALS: BP_SYST 109
[2021-03-22] MEDS: traZODone HCL 50 MG TABLET (DESYREL) PO SCH (21:22)
--- NOTE | 2021-03-22 21:22 | NUR ---
MED PASS PATIENT DUE MEDICATIONS GIVEN. HS SNACK PROVIDED. VITAL SIGNS STABLE.
--- NOTE | 2021-03-22 22:06 | NUR ---
COUGH PATIENT PERSISTENTLY COUGHING. PROVIDED WITH COUGH MEDICINE ORDERED.
--- NOTE | 2021-03-23 00:30 | NUR ---
ROUNDS PATIENT RESTING IN BED. NO DISTRESS NOTED. CALL LIGHT WITHIN REACH.
[2021-03-23 00:40] VITALS: BP_SYST 105
[2021-03-23] MEDS: IPRATROPIUM/ALBUTEROL SULFATE 3 ML AMPUL.NEB (DUONEB) INH SCH ×4 (03:00→15:00)
--- NOTE | 2021-03-23 03:30 | NUR ---
ROUNDS PATIENT BREATHING UNLABORED ON 02 2L NC. BED ALARM ON.
[2021-03-23] MEDS: VANCOMYCIN HCL 1,250 MG in NS 250 ML IV SCH (05:19)
[2021-03-23] MEDS: LEVOTHYROXINE SODIUM 0.075 MG TABLET PO SCH (06:04)
--- NOTE | 2021-03-23 06:12 | NUR ---
CLOSING NOTES NO CHANGE IN PATIENT CONDITION. AM FINGERSTICK SUGAR 114. PATIENT NEEDS ATTENDED.
[2021-03-23 07:10] LABS: BASOPHILS % (AUTO) 0.2 % (0.0-2.0); EOSINOPHILS # (AUTO) 0.1 K/uL (0.0-0.4); EOSINOPHILS % (AUTO) 0.8 % (0.0-4.0); HEMATOCRIT 32.7 % (36-48); HEMOGLOBIN 10.8 g/dL (12.0-16.0); LYMPHOCYTES # (AUTO) 2.9 K/uL (1.0-5.5); MEAN CORPUSCULAR HEMOGLOBIN 31 pg (27-31); MEAN CORPUSCULAR HGB CONC 33 % (32-36); MEAN CORPUSCULAR VOLUME 94 fL (79.0-98.0); MONOCYTES # (AUTO) 1.2 K/uL (0.0-1.0); MONOCYTES % (AUTO) 7.2 % (1.7-9.3); NEUTROPHILS # (AUTO) 12.8 K/uL (1.8-7.7); NEUTROPHILS % (AUTO) 74.8 % (40.0-70.0); PLATELET COUNT (AUTO) 386 K/uL (130-430); RED BLOOD CELL COUNT(AUTO) 3.49 MIL/uL (4.2-6.2); RED CELL DISTRIBUTION WIDTH 13.4 % (9.0-15.0)
[2021-03-23 07:36] LABS: ALBUMIN 2.8 g/dL (3.4-4.8); CALCIUM 9.1 mg/dL (8.4-11.0); CREATININE 1.2 mg/dL (0.55-1.30); POTASSIUM 4.9 mmol/L (3.5-5.1); TOTAL BILIRUBIN 0.3 mg/dL (0.0-1.0)
[2021-03-23] MEDS ORDERED: predniSONE 20 MG TABLET PO SCH (08:00)
[2021-03-23 08:52] VITALS: BP_SYST 115
[2021-03-23] MEDS: lisinopriL 20 MG TABLET PO SCH (08:56)
[2021-03-23] MEDS: LamoTRIgine 100 MG TABLET PO SCH (08:56)
[2021-03-23] MEDS: GABAPENTIN 300 MG CAPSULE PO SCH (08:57)
[2021-03-23] MEDS: POLYETHYLENE GLYCOL 3350, 17 GM/ POWD.PACK PO SCH (08:57)
[2021-03-23] MEDS ORDERED: LEVOFLOXACIN IN DEXTROSE 5 % 100 ML IV SCH (09:00)
[2021-03-23] MEDS: guaiFENesin 200 MG/10 ML UDC PO PRN (09:02)
[2021-03-23] MEDS ORDERED: PRED20TA PO (09:52)
[2021-03-23] MEDS ORDERED: ALBU8.5H8 INH (09:52)
[2021-03-23] MEDS ORDERED: LEVO500T89 PO (09:52)
--- NOTE | 2021-03-23 10:37 | NUR ---
IV RE-INSERTION: Complaining of pain to IV site. Restarted on right forearm. Successful after 2 attempts g.20. Resumed IV ANTIBIOTIC. Will observe for any signs of infiltration.
--- NOTE | 2021-03-23 11:24 | NUR ---
Referral for IV Vancomycin sent to [facility]
[2021-03-23] MEDS: INSULIN REGULAR, HUMAN 100 UNITS/ML, 10 ML VIAL (humuLIN R) SUBCUT PRN (11:39)
[2021-03-23 13:42] VITALS: BP_SYST 103
[2021-03-23 14:09] VITALS: BP_SYST 111
--- NOTE | 2021-03-23 14:20 | NUR ---
All home medication 9 bottles from pharmacy hand over to the patient
--- NOTE | 2021-03-23 14:45 | NUR ---
D/C Patient Patient given medication reconciliation form and D/C instructions. Exit Care provided. Patient verbalized understanding. MD discussed with patient the results and treatment provided. Ambulatory with steady gait for discharge to home. Patient in stable condition, ID band removed. with saline lock in right forearm g20 for IV antibiotic at home . ERx of LEVAQUIN, PREDNISONE,ALBUTEROL PUFF given. Patient educated on breathing exercise, medication,. All belongings sent with patient including home medication.
--- NOTE | 2021-03-23 15:20 | NUR ---
Discharge home accompanied by the son with all the belongings taken
== END 2021-03-23 15:25 | disposition home or self-care (01) | DRG 720 ==
LOC: SED 08:00 → STU 11:27 → SMU 03-20 10:25
PROVIDERS: ADMIT Internal Medicine Hospice and Palliative Medicine; ATTEND Internal Medicine Hospice and Palliative Medicine
DX: A41.1 Sepsis due to other specified staphylococcus (principal); J96.01 Acute respiratory failure with hypoxia; E43 Unspecified severe protein-calorie malnutrition; N17.9 Acute kidney failure, unspecified; J18.9 Pneumonia, unspecified organism; E11.21 Type 2 diabetes mellitus with diabetic nephropathy; E03.9 Hypothyroidism, unspecified; J44.0 Chronic obstructive pulmonary disease with (acute) lower respiratory infection; Z20.822 Contact with and (suspected) exposure to COVID-19; J44.1 Chronic obstructive pulmonary disease with (acute) exacerbation; F17.210 Nicotine dependence, cigarettes, uncomplicated; I10 Essential (primary) hypertension; Z88.0 Allergy status to penicillin; Z88.8 Allergy status to other drugs, medicaments and biological substances
CPT/HCPCS: 36415; 36600; 71045; 71275; 76376; 80048; 80053; 82550; 82728; 82803-TC; 82962; 83605; 83615; 83735; 83880; 84100; 84484; 85025; 85379; 85384; 85610-TC; 85651-TC; 85730-TC; 86140; 86886; 86900; 86901; 87040-TC; 87186-TC; 93005; 93306; 94640; 94664; 94760; 96365; 96375; 99291; G0378; J0692; J0696; J1030; J1100; J1815; J1956; J3370; J7050; J7060; J7512; Q9967; U0003